=== PATIENT | male | born 1990 | race American Indian/Alaskan Native ===

== ENCOUNTER 2019-12-20 11:57 | Emergency (ER) | payer OTHER ==
--- NOTE | 2019-12-20 13:04 | Emergency Department Report ---
ED Lower Extremity HPI - General Stated Complaint: LFT ANKLE PAIN Time Seen by Provider: 12/20/19 13:00 - History of Present Illness Initial Comments: This is a 29-year-old male nontoxic, well nourished in appearance, no acute signs of distress presents to the ED with c/o of left ankle pain x1 day. Patient stated had twisted it while walking. Patient denies any other trauma or injuries. Denies decreased ROM, joint swelling, redness. Stated has abnormal gait due to pain. Denies any fever, chills, nausea, vomiting, headache, stiff neck, chest pain or shortness of breath. Patient denies any numbness or tingling. Denies any allergies. MD Complaint: ankle injury -: days(s) Injury: Ankle: Left Type of Injury: inversion Severity: mild Severity scale (0 -10): 8 Improves With: immobilization Worsens With: weight bearing, movement, palpation Associated Symptoms: swelling, able to partially bear weight. denies: snap/pop sensation, numbness, tingling, unable to bear weight - Related Data Previous Rx's Medication Instructions Recorded Last Taken Type Naproxen 500 mg PO Q12H PRN #12 tablet 12/20/19 Unknown Rx Allergies Allergy/AdvReac Type Severity Reaction Status Date / Time No Known Allergies Allergy Verified 12/20/19 13:01 ED Review of Systems ROS: Stated complaint: LFT ANKLE PAIN Other details as noted in HPI Constitutional: denies: chills, fever Eyes: denies: eye pain, eye discharge, vision change ENT: denies: ear pain, throat pain Respiratory: denies: cough, shortness of breath, wheezing Cardiovascular: denies: chest pain, palpitations Endocrine: no symptoms reported Gastrointestinal: denies: abdominal pain, nausea, diarrhea Genitourinary: denies: urgency, dysuria Musculoskeletal: denies: back pain, joint swelling, arthralgia Skin: denies: rash, lesions Neurological: denies: headache, weakness, paresthesias Psychiatric: denies: anxiety, depression Hematological/Lymphatic: denies: easy bleeding, easy bruising ED Past Medical Hx - Medications Home Medications: Home Medications Medication Instructions Recorded Confirmed Last Taken Type Naproxen 500 mg PO Q12H PRN #12 tablet 12/20/19 Unknown Rx ED Physical Exam - General General appearance: alert, in no apparent distress - Head Head exam: Present: atraumatic, normocephalic - Eye Eye exam: Present: normal appearance - Neck Neck exam: Present: normal inspection, full ROM. Absent: tenderness, meningismus, lymphadenopathy - Respiratory Respiratory exam: Absent: respiratory distress - Cardiovascular Cardiovascular Exam: Present: regular rate - Extremities Exam Extremities exam: Present: full ROM, tenderness, normal capillary refill, joint swelling. Absent: calf tenderness - Expanded Lower Extremity Exam Left Hip exam: Present: normal inspection, full ROM. Absent: tenderness, swelling Upper Leg exam: Present: normal inspection, full ROM. Absent: tenderness, swelling Knee exam: Present: normal inspection, full ROM. Absent: tenderness, swelling Lower Leg exam: Present: normal inspection, full ROM. Absent: tenderness, swelling Ankle exam: Present: full ROM, tenderness, swelling, ecchymosis. Absent: abrasion, laceration, deformity, crepidus, dislocation, erythema, anterior draw sign Foot/Toe exam: Present: normal inspection, full ROM. Absent: tenderness, swelling, abrasion, laceration, ecchymosis, deformity, crepidus, dislocation, erythema, amputation, puncture wound, foreign body, calcaneal tenderness, te nderness at base of 5th metatarsal, nail avulsion, subungual hematoma Neuro vascular tendon exam: Present: no vascular compromise Gait: Positive: observed and limited by pain - Back Exam Back exam: Present: normal inspection, full ROM. Absent: tenderness, CVA tenderness (R), CVA tenderness (L), muscle spasm, paraspinal tenderness, vertebral tenderness, rash noted - Neurological Exam Neurological exam: Present: alert, oriented X3 - Psychiatric Psychiatric exam: Present: normal affect, normal mood - Skin Skin exam: Present: warm, dry, intact, normal color. Absent: rash ED Course Vital Signs 12/20/19 13:02 Temperature 98.9 F Pulse Rate 113 H Respiratory 20 Rate Blood Pressure 141/92 O2 Sat by Pulse 97 Oximetry - Reevaluation(s) Reevaluation #1: 12/20/19 13:04 Patient is speaking in full sentences with no signs of distress noted. ED Lower Extremity MDM - Radiology Data Referring Physician: RAVIN RIGGINS Patient Name: MAISHA STAFFORD Date of : 1990 Sex: Male Report Date: 2019-12-20 Report Status: Finalized [facility] [address] [place] [address] XRay Report Signed Patient: MAISHA STAFFORD MR#: [id number] : 1990 Acct:[id number] Age/Sex: 29 / M ADM Date: 12/20/19 Loc: ED Attending Dr: Ordering Physician: RAVIN RIGGINS NP Date of Service: 12/20/19 Procedure(s): XR ankle 3+V LT Accession Number(s): [id number] cc: RAVIN RIGGINS NP Fluoro Time In Minutes: LEFT ANKLE 3 VIEW(S) INDICATION / CLINICAL INFORMATION: left ankle pain COMPARISON: None available. FINDINGS: BONES / JOINT(S): No acute fracture or subluxation. No significant arthritis. 1 cm os trigonum versus Stieda process. SOFT TISSUES: No significant abnormality. ADDITIONAL FINDINGS: None. Signer Name: Rashawn Maya MD Signed: 12/20/2019 1:59 PM Workstation Name: [id number] Transcribed By: RH Dictated By: RASHAWN MAYA III Electronically Authenticated By: RASHAWN MAYA III Signed Date/Time: 12/20/19 1359 DD/ 1356 TD/TT: - Medical Decision Making This is a 29-year-old male that presents with left ankle sprain. Patient is stable and was examined by me. Exam does not show any acute conditions. No joint effusion, no redness. Patient received ankle stirup and crutches and was educatd by RN how to use crutches. Patient was instructed to Follow-up with a orthopedic doctor in 3-5 days or if symptoms worsen and continue return to emergency room as soon as possible. At time of discharge, the patient does not seem toxic or ill in appearance. No acute signs of distress noted. Patient agrees to discharge treatment plan of care. No further questions noted by the patient. Critical care attestation.: If time is entered above; I have spent that time in minutes in the direct care of this critically ill patient, excluding procedure time. ED Disposition Clinical Impression: Left ankle sprain Qualifiers: Encounter type: initial encounter Involved ligament of ankle: unspecified ligament Qualified Code(s): S93.402A - Sprain of unspecified ligament of left ankle, initial encounter Disposition: - TO HOME OR SELFCARE Is pt being admited?: No Does the pt Need Aspirin: No Condition: Stable Instructions: Ankle Sprain (ED), Ankle Stirrup Splint (ED), Crutch Instructions (ED), RICE Therapy (ED) Additional Instructions: Follow-up with a orthopedic doctor in 3-5 days or if symptoms worsen and continue return to emergency room as soon as possible. No physical activity until cleared by orthopedic doctor. Prescriptions: Naproxen 500 mg PO Q12H PRN #12 tablet PRN Reason: Pain , Severe (7-10) Referrals: PRIMARY CARE, [Primary Care Provider] - 3-5 Days RASHAWN BOLANOS MD [Staff Physician] - 3-5 Days Forms: Work/School Release Form(ED)
[2019-12-20 13:23] VITALS: BP 141/92
[2019-12-20] MEDS ORDERED: ACETAMINOPHEN 500 MG TAB PO ONE (13:56)
--- NOTE | 2019-12-20 14:03 | XRay Report ---
LEFT ANKLE 3 VIEW(S) INDICATION / CLINICAL INFORMATION: left ankle pain COMPARISON: None available. FINDINGS: BONES / JOINT(S): No acute fracture or subluxation. No significant arthritis. 1 cm os trigonum versus Stieda process. SOFT TISSUES: No significant abnormality. ADDITIONAL FINDINGS: None. Signer Name: Rashawn Maya MD Signed: 12/20/2019 1:59 PM Workstation Name: [id number]
== END 2019-12-20 14:39 | disposition home or self-care (01) ==
LOC: ED 11:57
DX: S93.402A Sprain of unspecified ligament of left ankle, initial encounter (principal); Z79.899 Other long term (current) drug therapy; W50.2XXA Accidental twist by another person, initial encounter; Y93.89 Activity, other specified; Y92.89 Other specified places as the place of occurrence of the external cause; Y99.8 Other external cause status
CPT/HCPCS: 99283